=== PATIENT | male | born 1945 | race Caucasian/White ===

== ENCOUNTER 2021-09-29 18:02 | Day surgery (SDC) ==
--- NOTE | 2021-09-29 18:21 | Emergency Department Note ---
Trauma HPI General Chief Complaint: Trauma Stated Complaint: Hand lac Time Seen by Provider: 09/29/21 18:21 Source: patient and family ( of over 50 years) Mode of arrival: ambulatory Limitations: no limitations History of Present Illness HPI Narrative: Narrative: 76-year-old male presents emerged department after cutting the tip of his right long finger off with a table saw at 1730. Patient has been n.p.o. since 153. Patient is left-handed. 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 He now does work at the [employer]. Last tetanus shot was less than 10 years ago. Patient rates his pain as a 6 on a 0-to-10 scale. Constant. Worse with palpation of the injury. No radiation of the pain. He has brought in the amputated part and it is on ice. Past medical history includes type 2 diabetes, hypertension, thyroid disease, obesity. Patient denies lung disease. Patient has hyperlipidemia. Patient has mitral valve leak. Related Data Home Medications Medication Instructions Recorded Confirmed atorvastatin 10 mg tablet 1 tab PO QDAY 09/30/21 09/30/21 dulaglutide 1.5 mg/0.5 mL ea subcut 09/30/21 subcutaneous pen injector (Trulicity) empagliflozin 25 mg tablet 1 tab PO QDAY 09/30/21 09/30/21 (Jardiance) gabapentin 300 mg capsule 1 cap PO QDAY 09/30/21 09/30/21 glipizide 5 mg tablet 1 tab PO QDAY 09/30/21 09/30/21 levothyroxine 50 mcg tablet 1 tab PO QDAY 09/30/21 09/30/21 losartan 50 mg tablet 1 tab PO QDAY 09/30/21 09/30/21 tamsulosin 0.4 mg capsule 1 cap PO QDAY 09/30/21 09/30/21 venlafaxine 75 mg capsule,extended 1 cap PO QDAY 09/30/21 09/30/21 release 24 hr Previous Rx's Medication Instructions Recorded cephalexin 500 mg capsule 500 mg PO TID #30 caps 09/29/21 hydrocodone 10 mg-acetaminophen 1 - 2 tab PO Q4H PRN Pain #40 tabs 09/29/21 325 mg tablet hydrocodone 5 mg-acetaminophen 325 1 tab PO Q4H PRN pain #10 tabs 09/29/21 mg tablet Allergies Allergy/AdvReac Type Severity Reaction Status Date / Time penicillin V Allergy Intermediate HIVES Verified 09/29/21 18:07 Review of Systems ROS ROS Narrative: Narrative: Constitutional: Denies fever Cardiovascular: Denies chest pain Respiratory: Denies shortness of breath Gastrointestinal: Denies abdominal pain Musculoskeletal: Reports other (Right long finger amputation distal phalanx); Denies back pain Neurological: Denies headache Psychiatric: Denies anxiety PFSH Narrative Patient History Narrative: Narrative: Medical/Surgical/Family History All Active Problems 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 (Acute) COVID-19 (Acute) Medical History COVID-19 Social History Smoking Status: Never smoker Exam Narrative Narrative: Narrative: General Limitations: no limitations General appearance: Present alert and in distress Head Head: Present atraumatic and normocephalic Eye Eye: Present normal appearance; Absent scleral icterus Respiratory Respiratory: Absent respiratory distress Extremities Extremities: Present other (Left long finger amputated at the distal IP joint) Neurological Neurological: Present alert and oriented X3 Psychiatric Psychiatric: Present normal affect and normal mood Skin Skin: Present warm (WNL) and dry Course Consultations Consultation #1: I discussed the case with Dr. Laguna the orthopedist midwife practitioner. He will come to the ER to evaluate the patient. Time: 18:44 Consultation #2: Patient states he wants to try to see if the finger can be replanted. We are placing a call to hand surgeon in [place]. Our local hand surgeon is unavailable this weekend. Time: 19:47 Consultation #3: I spoke with the hand surgeon in [place]. He stated that the patient was not a candidate for replantation. He advised that the patient be started on Keflex 500 mg 3 times daily for 10 days and follow-up with local orthopedist for revision of the amputation. Vital Signs Vital signs: Vital Signs Temperature 97.4 F 09/29/21 18:07 Pulse Rate 63 09/29/21 18:07 Respiratory Rate 16 09/29/21 18:07 Blood Pressure 127/67 09/29/21 18:07 Pulse Oximetry (%) 98 09/29/21 18:07 Oxygen Delivery Method 09/29/21 18:07 Temperature 98.0 F 09/30/21 00:20 Pulse Rate 52 L 09/30/21 00:20 Respiratory Rate 16 09/30/21 00:20 Blood Pressure 145/73 09/30/21 00:20 Pulse Oximetry (%) 94 09/30/21 00:20 Oxygen Delivery Method 09/30/21 00:20 MDM MDM Narrative Medical decision making narrative: Narrative: Elderly left-handed male using a table saw cut off the distal phalanx of his right long finger shortly before coming to the emergency department. Differential diagnosis includes replantation candidate, amputation without replantation option, revision of the stump, I discussed initially with Dr. Laguna the orthopedist on-call who said he would come to the emerge department evaluate the patient. I advised patient that this potentially could be replanted but our hand surgeon is not available so the patient would need to go to [place]. The patient stated he had he wanted it replanted if he could and Dr. Laguna was delayed secondary to a trauma case. I contacted the hand surgeon in [place] who said that the patient was not a cand idate for replantation and would need only a revision of the stump plus antibiotics. I move forward with setting the patient up for outpatient follow- up with orthopedics for revision and antibiotics. Just prior to discharge Dr. Montoya called and said that he was now available and was coming to our emergency department to evaluate the patient. Dr. Laguna determined that the patient needed to go the operating room and he ordered a chest x-ray which I reviewed as well as an EKG which I reviewed. He assumed care management of the patient. Lab Data Result diagrams: 09/29/21 21:13 Labs: Lab Results 09/29/21 Range/Units 21:13 WBC 9.3 (4.5-11.0) K/mcL RBC 4.85 (4.63-6.08) M/mcL Hgb 15.7 (13.7-17.5) g/dL Hct 45.6 (40.1-51.0) % MCV 94.0 (80.0-100.0) fL MCH 32.4 (26.0-34.0) pg MCHC 34.4 (31.0-36.0) g/dL RDW 12.3 (11.5-14.5) % Plt Count 154 (140-440) K/mcL MPV 11.0 H (7.4-10.4) fL Immature Gran % (Auto) 0.5 (0.0-0.5) % Neut % (Auto) 74.9 (38.0-78.0) % Lymph % (Auto) 16.7 (15.5-49.0) % [place] % (Auto) 6.7 (1.0-12.0) % Eos % (Auto) 0.6 (0.0-7.0) % Baso % (Auto) 0.6 (0.0-2.0) % Lymph # (Auto) 1.55 (1.50-4.80) K/mcL [place] # (Auto) 0.62 (0.10-0.90) K/mcL Eos # (Auto) 0.06 (0.00-0.70) K/mcL Baso # (Auto) 0.06 (0.00-0.30) K/mcL Immature Gran # 0.05 (0.00-0.05) K/mcl Absolute Neutrophils 6.97 (1.80-8.00) K/mcL EKG Data EKG #1: EKG attestation: Yes I reviewed and interpreted this EKG. EKG shows normal: sinus rhythm Rhythm: NSR [place]/QRS: left axis deviation Voltage: normal Heart block present: 1st Degree and RBBB ST segment elevation in: None ST segment depression in: None Interpretation: other (Abnormal EKG. 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) Condition: Fair Discharge Date/Time: 09/29/21 21:20
--- NOTE | 2021-09-29 18:44 | XRay Report ---
CLINICAL INFORMATION: Table saw injury COMPARISON: None FINDINGS: Complete third digit amputation at the distal middle phalangeal level appreciated. Few small avulsed fragments are seen in the terminal region. Diffuse soft tissue swelling noted. Severe STT and first CMC degenerative change noted. There is mild degenerative change in the second third fourth and fifth interphalangeal joints. IMPRESSION: Complete third digit amputation at the middle phalangeal level. Severe first CMC and STT degeneration Interpreted and Authenticated by: Juan Ibarra 09/29/21
[2021-09-29] MEDS: morphine 2 MG/ML VIAL IV ONE (19:32)
[2021-09-29] MEDS: ONDANSETRON 4 MG/2 ML VIAL IV ONE (19:32)
[2021-09-29] MEDS: HYDROcodone/APAP (PP) 5/325MG TABLET (#4) PO ONE (20:18)
[2021-09-29] MEDS: CEPHALEXIN 500 MG CAPSULE PO ONE (20:19)
--- NOTE | 2021-09-29 20:59 | Orthopedic History & Physical ---
HPI History of Present Illness Patient information: Note initiated : 09/29/21 at 8:54 pm Service Date, if different from initiated Date: [] Patient: Daniel Jimenes 76 y/o M admitted on for Hand lac. Chief Complaint: [right 3rd digit laceration ] Chief complaint: hand pain History of present illness: Mr. Jimenes is a 76 year old diabetic Male who presents to the [facility] ED with complaint of right middle finger laceration. He was working with a table saw repairing a boat when his hand slipped amputating the distal portion of his middle finger. He denies fall or head strike during the event and has no other complaints. He denies alcohol or elicit drug use. Dr. Laguna orthopedic surgeon was consulted for treatment options. 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 A/P Narrative A/P Narrative: Assessment: 76 yo diabetic male with distal phalanx amputation of the right 3rd digit. On exam patient is seated in bed in no acute distress, lungs are equal and clear bilaterally heart is normal rate and rhythm. pupils are renato, with intact ocular motions, mucous membranes are moist, Head, neck, chest are non-tender to palpation with normal ROM. upper extremities are warm well perfused and neuro intact. At the right hand 3rd digit there is a amputation of the mid distal phalanx with sanguinous drainage. remainder of hand is intact with 2+ distal pulses, warm and well perfused. options were presented to the patient including surgical and non-surgical including revision amputation of the right 3rd digit. At this time patient is interested in surgery. Plan is revision amputation of the right 3rd digit to take place semi-emergently with Luz Elena Panchal orthopedic surgeon and Ignacio SMITH. Surgical risks were explained to the patient including but not limited to: pain, bleeding, infection, injury to nerves and blood vessels, need for further surgery, stroke and cardiac complications, pulmonary complications, anesthesia reactions and . Patient understands these risks and wishes to proceed. Time Spent With Patient Time: Total time spent is greater than 50% in coordination of care (as documented) at patient's floor/unit and/or counseling patient:
[2021-09-29] MEDS: ceFAZolin 2 GM in DEXTROSE 5% IN WATER 50 ML IV SCH (21:39)
[2021-09-29] MEDS ORDERED: PROPOFOL 200 MG/20 ML VIAL IV ONE (21:45)
[2021-09-29] MEDS ORDERED: KETAMINE 50 MG/ML Syringe (ANEST) IV ONE (21:45)
[2021-09-29 21:56] LABS: Basophils # (Auto) 0.06 K/mcL (0.00-0.30); Basophils % (Auto) 0.6 % (0.0-2.0); Eosinophils # (Auto) 0.06 K/mcL (0.00-0.70); Eosinophils % (Auto) 0.6 % (0.0-7.0); Hematocrit 45.6 % (40.1-51.0); Hemoglobin 15.7 g/dL (13.7-17.5); Lymphocytes # (Auto) 1.55 K/mcL (1.50-4.80); Lymphocytes % (Auto) 16.7 % (15.5-49.0); Mean Corpuscular HGB Conc 34.4 g/dL (31.0-36.0); Monocytes # (Auto) 0.62 K/mcL (0.10-0.90); Monocytes % (Auto) 6.7 % (1.0-12.0); Neutrophils % (Auto) 74.9 % (38.0-78.0); Platelet Count 154 K/mcL (140-440); RBC 4.85 M/mcL (4.63-6.08); Red Cell Distribution Width 12.3 % (11.5-14.5); WBC 9.3 K/mcL (4.5-11.0)
--- NOTE | 2021-09-29 22:14 | General Surgery Procedure Note ---
Date of procedure: Note initiated : 09/29/21 at 10:13 pm Service Date, if different from initiated Date: [] Pre-op diagnosis: right distal phalanx amputation Post-op diagnosis: same Procedure: revision amputation right middle finger Anesthesia: CARLINE Surgeon: Juan Laguna Primer Waterproofing Machine Adjuster: Shalom Wyman Estimated blood loss: 10 Pathology: none sent Condition: stable Disposition: PACU
[2021-09-29] MEDS ORDERED: morphine 4 MG/ML VIAL IV PRN (22:15)
[2021-09-29] MEDS ORDERED: HYDROcodone/APAP 10/325MG TABLET PO PRN (22:15)
--- NOTE | 2021-09-29 22:15 | Discharge Plan ---
DC Instructions-General Patient Instructions Dressing Care: May shower in 2 days Discharge Plan Patient/Caregiver Discharge Instructions Activity: as instructed Diet: Regular Diet Instructions: Finger Amputation (ED) Activity Restrictions/Additional Instructions: Elevate the finger or hand and have it pointing upward to decrease pain, throbbing, bleeding. Call Dr. Laguna's office Saturday to arrange follow-up in 10-14 days. Take the antibiotic pill cephalexin 3 times a day for 10 days. Use the pain pills if needed. You may also use ibuprofen or acetaminophen (generic Tylenol) as needed for pain if you do not need the stronger pain pill. Return if any problem. Prescriptions: New cephalexin 500 mg capsule 500 mg PO TID Qty: 30 0RF Rx Instructions: states he has had this before hydrocodone-acetaminophen 5-325 mg tablet 1 tab PO Q4H PRN (Reason: pain) Qty: 10 0RF Follow Up Plan Follow up with: Juan Laguna MD [Physician] - Adeola Teresa ARNP [Primary Care Provider] - Patient Disposition: Home, Self-Care Prognosis: Fair Rehab Potential: Good I certify that the patient requires SNF services: No Overall status at discharge: patient is progressing back to baseline Discharge Orders: Discharge Order (Routine); Ordered 09/29/21 Ordered By: Juan Laguna
[2021-09-29] MEDS: BUPIVACAINE 0.5% SQ ONE (22:20)
[2021-09-29] MEDS: LIDOCAINE 1% SQ ONE (22:20)
[2021-09-29] MEDS ORDERED: diphenhydrAMINE 50 MG/ML VIAL IV PRN (22:22)
[2021-09-29] MEDS ORDERED: PROMETHAZINE 25 MG/ML VIAL IV PRN (22:22)
[2021-09-29] MEDS ORDERED: NALOXONE HCL 0.4 MG/ML VIAL IV PRN (22:22)
[2021-09-29] MEDS ORDERED: ONDANSETRON 4 MG/2 ML VIAL IV PRN (22:22)
[2021-09-29] MEDS ORDERED: IPRATROPIUM/ALBUTEROL 3 ML AMPUL.NEB NEB PRN (22:22)
[2021-09-29] MEDS ORDERED: fentaNYL 100 MCG/2 ML VIAL IV PRN (22:22)
[2021-09-29] MEDS ORDERED: LACTATED RINGERS 250 ML IV PRN (22:22)
[2021-09-29] MEDS ORDERED: MEPERIDINE 25 MG/ML VIAL IV PRN (22:22)
[2021-09-29] MEDS ORDERED: LACTATED RINGERS 1,000 ML IV SCH (22:30)
[2021-09-29] MEDS: ACETAMINOPHEN 1,000 MG/100 ML BAG IV ONE (22:33)
[2021-09-29] MEDS: LACTATED RINGERS 1,000 ML IV SCH (22:55)
[2021-09-29] MEDS: ceFAZolin 1 GM VIAL ONE (23:35)
--- NOTE | 2021-09-30 05:23 | XRay Report ---
CLINICAL INFORMATION: Preop COMPARISON: None. TECHNIQUE: Portable FINDINGS: The heart size, mediastinum and pulmonary vessels are unremarkable. The lungs are clear. There are no effusions. The bones and soft tissues are within normal limits. IMPRESSION: Normal chest. Interpreted and Authenticated by: Juan Ibarra 09/30/21
[2021-09-30] MEDS ORDERED: 0.9 % SODIUM CHLORIDE 10 ML SYRINGE IV SCH (06:00)
--- NOTE | 2021-10-02 07:26 | EKG ---
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 Measurements Intervals [place] Rate: 60 P: 46 MD: 231 QRS: -90 QRSD: 133 T: 34 QT: 435 QTc: 435 Interpretive Statements Sinus rhythm Prolonged MD interval Right bundle branch block Inferior infarct, old Lateral leads are also involved Electronically Signed On 10-02-2021 7:26:43 PDT by Juan Hudson M.D. /[id number]/[email or web address]/[id number]
--- NOTE | 2021-10-02 07:58 | Operative Note ---
DATE OF OPERATION: 09/29/2021 PREOPERATIVE DIAGNOSIS: Amputation middle finger through the distal aspect of the middle phalanx. POSTOPERATIVE DIAGNOSIS: Amputation middle finger through the distal aspect of the middle phalanx. PROCEDURE PERFORMED: Revision amputation, right middle finger through the middle phalanx. SURGEON: Júnior Laguna M.D. MINE BOSS SURGEON: Ignacio Wyman PA-C. This providers expertise and technical skill were required throughout the case. The LUIS assisted with preoperative coordination, intraoperative retraction, wound closure, and dressing and splint application, as well as postoperative documentation and care coordination. ANESTHESIA: General. INTRAOPERATIVE FINDINGS: Amputation of the middle phalanx finger through the distal aspect of the middle phalanx. INDICATIONS: The patient is a pleasant 76-year-old male. He was using a table saw and sustained a table saw injury with fracture and a laceration through the distal aspect of the middle phalanx. He brought the distal piece in with him; however, it was severely damaged and not replantable. We talked about different options and elected to proceed with the above surgical intervention. The risks and benefits were discussed with the patient in detail including, but not limited to, the risks of anesthesia, problems with the heart or lungs related to anesthesia, infection, compromise or injury to the nerves and blood vessels, deep venous thrombosis, pulmonary embolism, pneumonia, continued pain after surgery, worsening pain or symptoms after surgery, swelling, loss of motion, need for repeat surgery, hardware failure, re-tear or failure of repair site, malunion, nonunion, and hardware pain requiring future removal. DESCRIPTION OF PROCEDURE: The patient was seen preoperatively where site was marked and questions were answered. He was then transported to the operating table, given 2 grams of Ancef and general anesthesia was administered without complication. He was prepped and draped in the usual sterile fashion from the fingers up to the elbow. A digital block was placed with 20 mL of a combination of 1% lidocaine without epinephrine and 0.5% Marcaine without epinephrine, which were injected in a digital block at the MCP joint. We then placed a Tourni-Cot. I began to thoroughly irrigate the wound. It was a clean cut through the distal aspect of the middle phalanx. I brought this back with a saw about a 3 mm proximal and bevelled off the edges. We again thoroughly irrigated. There was no debris. We used a 3-0 Monocryl to suture over the bone, distal extent from anterior to posterior to get good coverage. I then revised the skin to make a good [place] bringing it over top with a good amount of skin and subcutaneous tissue over the bone. We used 3-0 Monocryl and 3-0 Prolene interrupted on the skin. He was dressed with Xeroform, 4x4 and placed into a finger Reji splint. Tourni-Cot was removed. He was then extubated, transferred to the stretcher and taken to the PACU in stable condition. SPECIMENS: None. COMPLICATIONS: None. DRAINS: None. DISPOSITION: To PACU in stable condition. VALARIE:maureen Job ID: [id number] Doc ID: [id number] Júnior Laguna MD
== END 2021-09-30 00:25 | disposition home or self-care (01) ==
LOC: ED 18:02 → MEDSUR 21:20 → SUR 21:20 → MEDSUR 23:21 → SUR 09-30 00:25
PROVIDERS: ATTEND Orthopaedic Surgery Sports Medicine